=== PATIENT | male | born 1945 | race Caucasian/White ===

== ENCOUNTER 2022-11-06 10:50 | Inpatient (IN) ==
[2022-11-06] MEDS ORDERED: SODIUM CHLORIDE 0.9% 1,000 ML IV STA ×2 (12:11→18:24)
[2022-11-06 12:26] LABS: Basophils % 0.1 % (0.0-0.8); Hematocrit 29.7 VOL% (42.0-52.0); Hemoglobin 9.8 GM/DL (14.0-18.0); Immature Granulocytes % 4.8 %; Immature Granulocytes Absolute 0.37 #; Lymphocytes # 0.8 10*3/uL (1.4-4.0); Mean Corpuscular Volume 102.8 FL (87-102); Monocytes % 65.3 % (1.7-12.7); Neutrophils % 18.8 % (38.7-73.9); Platelet Count 104 T/CUMM (130-400); Red Blood Count 2.89 MC/CUMM (3.8-5.5); Red Cell Distribution Width 18.9 % (9.3-17.3); White Blood Count 7.64 T/CUMM (4-12)
[2022-11-06 12:35] LABS: Alanine Aminotransferase 44 U/L (16-61); Albumin 2.7 G/DL (3.4-5.0); Alkaline Phosphatase 76 U/L (45-117); Aspartate Amino Transferase 51 U/L (0-37); Blood Urea Nitrogen 43 MG/DL (7-18); Calcium 8.9 MG/DL (8.5-10.1); Carbon Dioxide 15 MMOL/L (21-32); Chloride 99 MMOL/L (98-107); Glucose 182 MG/DL (74-106); Osmolality,Calculated 279.5 MOS/KG (273-304); Potassium 4.5 MMOL/L (3.5-5.1); Sodium 132 MMOL/L (136-145); Total Protein 7.5 G/DL (6.4-8.2)
[2022-11-06 12:46] LABS: INR 1.1; PT Patient Result 12.1 SECS (10.1-12.1)
[2022-11-06 13:09] LABS: Band Neutrophils 4 % (0-10); Lymphocytes 12 % (20-55); Platelet Estimate Decreased; Total Cells Counted 100
[2022-11-06 13:10] LABS: Anisocytosis 1+; Macrocytosis 1+
[2022-11-06] MEDS: ENOXAPARIN 80 MG/0.8 ML SYRINGE SUBCUT SCH (13:22)
[2022-11-06] MEDS ORDERED: ALBUTEROL 2.5 MG/3 ML NEB RESP TX PRN (14:27)
[2022-11-06] MEDS ORDERED: ONDANSETRON 4 MG/2 ML VIAL IV PRN (14:29)
[2022-11-06] MEDS: PANTOPRAZOLE 40 MG VIAL IV SCH (14:55)
[2022-11-06] MEDS ORDERED: SODIUM CHLORIDE 0.9% 1,000 ML IV ONE (15:22)
[2022-11-06] MEDS ORDERED: ALBUTEROL/IPRATROPIUM 3 ML NEB RESP TX STA (15:23)
[2022-11-06 15:37] LABS: Hyaline Casts,Urine 12 /LPF (0-3); Mucus,Urine Occasional /LPF (Occasional); RBC,Urine 12 /HPF (0-4); Squamous Epithelial Cell,Urine Occasional /HPF (0-10)
[2022-11-06 15:38] LABS: Bilirubin,Urine Negative (Negative); Blood, Urine Moderate mg/dL (Negative); Glucose,Urine (UA) 100 mg/dL (Negative); Ketones,Urine Negative (Negative); Nitrite,Urine Negative (Negative); Protein,Urine 100 mg/dL (Negative); Urine Appearance Clear (Clear); Urine Color Yellow (Yellow); Urine Specific Gravity 1.025 (1.001-1.035); Urine Urobilinogen 0.2 eU/dL (<2.0); Urine pH 5.5 (4.5-8.0)
[2022-11-06] MEDS ORDERED: NOREPINEPHRINE 4 MG/4 ML VIAL IV ONE (17:16)
[2022-11-06 17:17] LABS: Arterial Base Excess iSTAT -11 MMOL/L (-2.5-2.5); Arterial Bicarbonate iSTAT 13.1 MMOL/L (20-26); Arterial O2 Saturation iSTAT 97 % (95-100); Arterial PCO2 iSTAT 22 MM HG (35-48); Arterial PO2 iSTAT 87 MM HG (80-95); Arterial Total CO2 iSTAT 14 MMO/L (23-27)
[2022-11-06] MEDS: NOREPINEPHRINE DRIP 8 MG/250 ML PREMIX IV PRN (17:22)
[2022-11-06] MEDS: LACTATED RINGERS 1,000 ML IV SCH (17:28)
[2022-11-06] MEDS ORDERED: LACTATED RINGERS 1,000 ML IV SCH (17:30)
[2022-11-06] MEDS ORDERED: FUROSEMIDE 40 MG/4 ML VIAL IV ONE (23:53)
[2022-11-06 23:58] LABS: ABG Base Excess -12.9 MMOL/L (-2.5-2.5); ABG HCO3 14.4 MMOL/L (20-26); ABG PCO2 23.6 MM HG (35-48); ABG PH 7.315 (7.35-7.45); ABG PO2 84.6 MM HG (80-95)
[2022-11-07] MEDS ORDERED: CEFEPIME 2,000 MG in SODIUM CHLORIDE 0.9% 100 ML IV SCH (01:00)
[2022-11-07] MEDS: metroNIDAZOLE INJ 500 MG/100 ML PREMIX IV SCH ×3 (01:18→16:40)
[2022-11-07] MEDS: CEFEPIME 1,000 MG in SODIUM CHLORIDE 0.9% 100 ML IV SCH ×2 (01:41→14:30)
[2022-11-07 01:59] LABS: Albumin 2.4 G/DL (3.4-5.0); Bilirubin,Total 0.9 MG/DL (0.20-1.00); Calcium 8.6 MG/DL (8.5-10.1); Osmolality,Calculated 276.5 MOS/KG (273-304); Potassium 4.5 MMOL/L (3.5-5.1)
[2022-11-07] MEDS: LACTATED RINGERS 1,000 ML IV SCH (04:17)
[2022-11-07 05:13] LABS: Basophils % 0.2 % (0.0-0.8); Hematocrit 30.6 VOL% (42.0-52.0); Hemoglobin 9.8 GM/DL (14.0-18.0); Immature Granulocytes % 7.7 %; Immature Granulocytes Absolute 1.32 #; Lymphocytes # 2.9 10*3/uL (1.4-4.0); Lymphocytes % 16.9 % (21.2-54.2); Mean Corpuscular Volume 105.2 FL (87-102); Mean Platelet Volume 9.2 FL (9.6-12.0); Monocytes % 52.8 % (1.7-12.7); Neutrophils % 22.4 % (38.7-73.9); Platelet Count 130 T/CUMM (130-400); Red Blood Count 2.91 MC/CUMM (3.8-5.5); Red Cell Distribution Width 19.7 % (9.3-17.3); White Blood Count 17.13 T/CUMM (4-12)
[2022-11-07 05:41] LABS: Band Neutrophils 3 % (0-10); Lymphocytes 12 % (20-55); Metamyelocytes 1 %; Total Cells Counted 100
[2022-11-07 05:42] LABS: Macrocytosis 1+; Platelet Estimate Adequate; Polychromasia Slight
[2022-11-07 05:43] LABS: Albumin 2.4 G/DL (3.4-5.0); Bilirubin,Total 0.8 MG/DL (0.20-1.00); Osmolality,Calculated 282.2 MOS/KG (273-304); Potassium 4.5 MMOL/L (3.5-5.1); Risk Ratio 2.69; Thyroid Stimulating Hormone 8.95 uIU/ml (0.358-3.74); Total Protein 7.3 G/DL (6.4-8.2); VLDL Cholesterol 17.4 MG/DL
[2022-11-07 06:07] LABS: ABG Base Excess -15.3 MMOL/L (-2.5-2.5); ABG HCO3 12.9 MMOL/L (20-26); ABG Oxygen Saturation 95.6 % (95-100); ABG PCO2 25.4 MM HG (35-48); ABG PH 7.242 (7.35-7.45); ABG PO2 94.3 MM HG (80-95)
[2022-11-07] MEDS ORDERED: MICAFUNGIN 100 MG in SODIUM CHLORIDE 0.9% 100 ML IV SCH (09:00)
[2022-11-07] MEDS: HYDROCORTISONE 100 MG VIAL IV SCH ×3 (09:17→20:19)
[2022-11-07] MEDS: NOREPINEPHRINE DRIP 8 MG/250 ML PREMIX IV PRN (10:35)
[2022-11-07] MEDS: SODIUM BICARB INJ 150 MEQ in DEXTROSE 5% 1,000 ML IV SCH (11:40)
[2022-11-07] MEDS: ENOXAPARIN 80 MG/0.8 ML SYRINGE SUBCUT SCH (14:30)
[2022-11-07] MEDS: VANCOMYCIN 125 MG CAPSULE PO SCH ×2 (14:32→20:19)
[2022-11-07] MEDS: PANTOPRAZOLE 40 MG VIAL IV SCH (14:32)
[2022-11-07] MEDS ORDERED: SODIUM BICARBONATE 50 MEQ/50 ML VIAL IV ONE (17:48)
[2022-11-08] MEDS: INSULIN LISPRO 100 UNIT/ML SUBCUT SCH ×4 (00:20→18:47)
[2022-11-08] MEDS: CEFEPIME 1,000 MG in SODIUM CHLORIDE 0.9% 100 ML IV SCH ×2 (00:27→12:57)
[2022-11-08] MEDS: metroNIDAZOLE INJ 500 MG/100 ML PREMIX IV SCH ×3 (00:29→20:40)
[2022-11-08 01:50] LABS: Basophils % 0.2 % (0.0-0.8); Hemoglobin 8.2 GM/DL (14.0-18.0); Immature Granulocytes % 4.3 %; Immature Granulocytes Absolute 0.35 #; Lymphocytes % 11.9 % (21.2-54.2); Mean Corpuscular HGB Conc 32.8 GM/DL (32-36); Mean Corpuscular Volume 102.5 FL (87-102); Mean Platelet Volume 9.8 FL (9.6-12.0); Monocytes # 5.4 10*3/uL (0.11-0.8); Monocytes % 66.2 % (1.7-12.7); Neutrophils % 17.4 % (38.7-73.9); Platelet Count 99 T/CUMM (130-400); Red Blood Count 2.44 MC/CUMM (3.8-5.5); Red Cell Distribution Width 19.8 % (9.3-17.3); White Blood Count 8.17 T/CUMM (4-12)
[2022-11-08 01:59] LABS: Bilirubin,Total 0.6 MG/DL (0.20-1.00); Calcium 8.3 MG/DL (8.5-10.1); Osmolality,Calculated 298.2 MOS/KG (273-304); Potassium 4.2 MMOL/L (3.5-5.1); Total Protein 6.5 G/DL (6.4-8.2)
[2022-11-08] MEDS: HYDROCORTISONE 100 MG VIAL IV SCH ×3 (02:20→20:37)
[2022-11-08 02:55] LABS: Lymphocytes 10 % (20-55); Total Cells Counted 100
[2022-11-08 02:56] LABS: Platelet Estimate Decreased
[2022-11-08 02:57] LABS: Anisocytosis 1+; Macrocytosis 1+; Ovalocytes Few
[2022-11-08] MEDS: VANCOMYCIN 125 MG CAPSULE PO SCH ×4 (03:01→18:23)
[2022-11-08] MEDS: SODIUM BICARB INJ 150 MEQ in DEXTROSE 5% 1,000 ML IV SCH ×2 (03:06→16:02)
[2022-11-08 03:59] LABS: ABG Base Excess -8.1 MMOL/L (-2.5-2.5); ABG HCO3 17.9 MMOL/L (20-26); ABG Oxygen Saturation 97.7 % (95-100); ABG PCO2 27.3 MM HG (35-48); ABG PH 7.374 (7.35-7.45); ABG TCO2 14.4 MMOL/L (23-27)
[2022-11-08] MEDS ORDERED: ACETAMINOPHEN 325 MG TABLET PO PRN (11:03)
[2022-11-08] MEDS ORDERED: SODIUM CHLORIDE 0.9% 1,000 ML IV PRN (11:34)
[2022-11-08] MEDS: SODIUM BICARBONATE 650 MG TABLET PO SCH ×2 (11:47→20:37)
[2022-11-08] MEDS: METOPROLOL TARTRATE 5 MG/5 ML VIAL IV PRN ×2 (12:53→19:03)
[2022-11-08] MEDS ORDERED: SODIUM BICARB IV SCH (13:00)
[2022-11-08] MEDS ORDERED: DEXTROSE 5% IV SCH (13:00)
[2022-11-08 15:00] LABS: Calcium 8.1 MG/DL (8.5-10.1); Osmolality,Calculated 307.1 MOS/KG (273-304); Potassium 3.7 MMOL/L (3.5-5.1)
[2022-11-08] MEDS: PANTOPRAZOLE 40 MG VIAL IV SCH (15:26)
[2022-11-08] MEDS ORDERED: METOPROLOL TARTRATE 5 MG/5 ML VIAL IV ONE (16:45)
[2022-11-08] MEDS ORDERED: GLUCAGON 1 MG VIAL IM PRN (17:38)
[2022-11-08] MEDS ORDERED: DEXTROSE 10% 250 ML BAG IV PRN (17:40)
[2022-11-08] MEDS: GABAPENTIN 300 MG CAPSULE PO SCH (20:37)
[2022-11-08] MEDS ORDERED: AMIODARONE INJ 150 MG in DEXTROSE 5% 100 ML IV ONE (21:18)
[2022-11-08] MEDS ORDERED: AMIODARONE 150 MG/3 ML VIAL ONE (21:25)
[2022-11-08] MEDS ORDERED: AMIODARONE INJ 450 MG in DEXTROSE 5% 241 ML IV SCH (22:00)
[2022-11-08] MEDS ORDERED: SODIUM BICARB INJ 150 MEQ in STERILE WATER INJ 850 ML IV SCH (22:00)
[2022-11-09] MEDS: INSULIN LISPRO 100 UNIT/ML SUBCUT SCH ×5 (00:04→20:47)
[2022-11-09] MEDS: CEFEPIME 1,000 MG in SODIUM CHLORIDE 0.9% 100 ML IV SCH ×2 (00:05→13:12)
[2022-11-09] MEDS: VANCOMYCIN 125 MG CAPSULE PO SCH ×4 (00:06→18:11)
[2022-11-09 02:45] LABS: Basophils % 0.3 % (0.0-0.8); Hematocrit 26.1 VOL% (42.0-52.0); Hemoglobin 8.9 GM/DL (14.0-18.0); Immature Granulocytes % 2.3 %; Immature Granulocytes Absolute 0.08 #; Lymphocytes # 0.6 10*3/uL (1.4-4.0); Lymphocytes % 16.2 % (21.2-54.2); Mean Corpuscular HGB Conc 34.1 GM/DL (32-36); Mean Corpuscular Volume 97.4 FL (87-102); Mean Platelet Volume 9.6 FL (9.6-12.0); Monocytes % 56.3 % (1.7-12.7); Neutrophils % 24.9 % (38.7-73.9); Platelet Count 84 T/CUMM (130-400); Red Blood Count 2.68 MC/CUMM (3.8-5.5); Red Cell Distribution Width 18.6 % (9.3-17.3); White Blood Count 3.52 T/CUMM (4-12)
[2022-11-09 03:00] LABS: Calcium 7.7 MG/DL (8.5-10.1); Free T4 (Free Thyroxine) 0.96 NG/DL (0.76-1.46); Potassium 3.7 MMOL/L (3.5-5.1)
[2022-11-09 03:07] LABS: Lymphocytes 14 % (20-55); Platelet Estimate Decreased; Total Cells Counted 100
[2022-11-09] MEDS: HYDROCORTISONE 100 MG VIAL IV SCH ×2 (04:52→17:44)
[2022-11-09] MEDS: metroNIDAZOLE INJ 500 MG/100 ML PREMIX IV SCH ×3 (04:52→20:46)
[2022-11-09] MEDS: LEVOTHYROXINE 50 MCG TABLET PO SCH (05:52)
[2022-11-09] MEDS: AMIODARONE INJ 450 MG in DEXTROSE 5% 241 ML IV SCH ×2 (06:01→21:07)
[2022-11-09] MEDS ORDERED: FUROSEMIDE 40 MG/4 ML VIAL IV ONE ×2 (08:14→16:00)
[2022-11-09] MEDS ORDERED: ENOXAPARIN 30 MG/0.3 ML SYRINGE SUBCUT SCH (09:00)
[2022-11-09] MEDS: ENOXAPARIN 100 MG/ML SYRINGE SUBCUT SCH ×2 (09:37→20:47)
[2022-11-09] MEDS: GABAPENTIN 300 MG CAPSULE PO SCH ×2 (09:37→20:47)
[2022-11-09] MEDS: INSULIN GLARGINE 100 UNIT/ML SUBCUT SCH (09:37)
[2022-11-09] MEDS: SODIUM BICARBONATE 650 MG TABLET PO SCH ×2 (09:38→20:47)
[2022-11-09] MEDS: METOPROLOL TARTRATE 25 MG TABLET PO SCH (09:42)
[2022-11-09] MEDS ORDERED: POTASSIUM CHLORIDE 20 MEQ TABLET PO ONE (11:58)
[2022-11-09] MEDS: ASCORBIC ACID 500 MG TABLET PO SCH ×2 (12:13→20:48)
[2022-11-09] MEDS: AMIODARONE 200 MG TABLET PO SCH ×2 (12:13→20:48)
[2022-11-09] MEDS ORDERED: LEVALBUTEROL 1.25 MG/3 ML NEB RESP TX PRN (13:22)
[2022-11-09] MEDS ORDERED: LEVALBUTEROL 1.25 MG/3 ML NEB RESP TX ONE (13:24)
[2022-11-09] MEDS ORDERED: ALBUMIN 25% 25 GM/100 ML VIAL IV ONE (15:25)
[2022-11-09] MEDS: PANTOPRAZOLE 40 MG VIAL IV SCH (15:34)
[2022-11-09] MEDS ORDERED: ZALEPLON 5 MG CAPSULE PO PRN (18:31)
[2022-11-10] MEDS: CEFEPIME 1,000 MG in SODIUM CHLORIDE 0.9% 100 ML IV SCH ×2 (00:13→12:00)
[2022-11-10] MEDS: VANCOMYCIN 125 MG CAPSULE PO SCH ×5 (00:14→23:48)
[2022-11-10 04:29] LABS: Basophils % 0.4 % (0.0-0.8); Hematocrit 25.2 VOL% (42.0-52.0); Hemoglobin 8.4 GM/DL (14.0-18.0); Immature Granulocytes % 1.3 %; Immature Granulocytes Absolute 0.03 #; Lymphocytes # 0.5 10*3/uL (1.4-4.0); Lymphocytes % 21.7 % (21.2-54.2); Mean Corpuscular HGB Conc 33.3 GM/DL (32-36); Mean Corpuscular Volume 101.6 FL (87-102); Mean Platelet Volume 9.2 FL (9.6-12.0); Monocytes # 1.1 10*3/uL (0.11-0.8); Monocytes % 49.1 % (1.7-12.7); Neutrophils % 27.5 % (38.7-73.9); Platelet Count 72 T/CUMM (130-400); Red Blood Count 2.48 MC/CUMM (3.8-5.5); Red Cell Distribution Width 18.7 % (9.3-17.3); White Blood Count 2.26 T/CUMM (4-12)
[2022-11-10 04:46] LABS: Albumin 2.1 G/DL (3.4-5.0); Bilirubin,Total 0.8 MG/DL (0.20-1.00); Calcium 7.6 MG/DL (8.5-10.1); Potassium 3.7 MMOL/L (3.5-5.1); Total Protein 6.1 G/DL (6.4-8.2)
[2022-11-10 04:55] LABS: Hypochromia Slight; Lymphocytes 31 % (20-55); Microcytosis Slight; Platelet Estimate Decreased; Total Cells Counted 100
[2022-11-10 05:02] LABS: Calcium 7.6 MG/DL (8.5-10.1); Osmolality,Calculated 305.1 MOS/KG (273-304); Potassium 3.7 MMOL/L (3.5-5.1)
[2022-11-10 05:04] LABS: Folate 5.14 NG/ML (5.38-24.0)
[2022-11-10] MEDS: HYDROCORTISONE 100 MG VIAL IV SCH ×2 (05:31→16:30)
[2022-11-10] MEDS: LEVOTHYROXINE 50 MCG TABLET PO SCH (05:31)
[2022-11-10] MEDS: metroNIDAZOLE INJ 500 MG/100 ML PREMIX IV SCH ×3 (05:33→20:43)
[2022-11-10] MEDS ORDERED: FUROSEMIDE 40 MG/4 ML VIAL IV ONE (08:14)
[2022-11-10] MEDS: INSULIN GLARGINE 100 UNIT/ML SUBCUT SCH (08:33)
[2022-11-10] MEDS: INSULIN LISPRO 100 UNIT/ML SUBCUT SCH ×4 (08:33→22:43)
[2022-11-10] MEDS: METOPROLOL TARTRATE 25 MG TABLET PO SCH (08:34)
[2022-11-10] MEDS: ASCORBIC ACID 500 MG TABLET PO SCH ×2 (08:34→20:45)
[2022-11-10] MEDS: AMIODARONE 200 MG TABLET PO SCH ×2 (08:34→20:45)
[2022-11-10] MEDS: ENOXAPARIN 100 MG/ML SYRINGE SUBCUT SCH ×2 (08:34→20:44)
[2022-11-10] MEDS: SODIUM BICARBONATE 650 MG TABLET PO SCH ×2 (08:34→20:44)
[2022-11-10] MEDS: GABAPENTIN 300 MG CAPSULE PO SCH ×2 (08:35→20:46)
[2022-11-10] MEDS: guaiFENesin/DM ER 600-30 MG TABLET PO SCH ×2 (08:43→20:45)
[2022-11-10] MEDS ORDERED: HYDROCORTISONE 100 MG VIAL IV SCH (09:02)
[2022-11-10] MEDS ORDERED: POTASSIUM CHLORIDE 20 MEQ TABLET PO ONE (14:44)
[2022-11-10] MEDS: FOLIC ACID 1 MG TABLET PO SCH (20:45)
[2022-11-11 04:20] LABS: Hematocrit 25.2 VOL% (42.0-52.0); Hemoglobin 8.3 GM/DL (14.0-18.0); Immature Granulocytes % 1.2 %; Immature Granulocytes Absolute 0.02 #; Lymphocytes # 0.6 10*3/uL (1.4-4.0); Lymphocytes % 33.7 % (21.2-54.2); Mean Corpuscular HGB Conc 32.9 GM/DL (32-36); Mean Corpuscular Volume 102.9 FL (87-102); Mean Platelet Volume 10.9 FL (9.6-12.0); Monocytes # 0.7 10*3/uL (0.11-0.8); Monocytes % 43.4 % (1.7-12.7); Neutrophils % 21.7 % (38.7-73.9); Red Blood Count 2.45 MC/CUMM (3.8-5.5); Red Cell Distribution Width 18.6 % (9.3-17.3); White Blood Count 1.66 T/CUMM (4-12)
[2022-11-11 04:21] LABS: Platelet Count 71 T/CUMM (130-400)
[2022-11-11 04:43] LABS: Calcium 7.6 MG/DL (8.5-10.1); Osmolality,Calculated 309.8 MOS/KG (273-304); Potassium 3.5 MMOL/L (3.5-5.1)
[2022-11-11 04:45] LABS: Hypochromia Slight; Lymphocytes 34 % (20-55); Platelet Estimate Decreased; Total Cells Counted 100
[2022-11-11] MEDS: HYDROCORTISONE 100 MG VIAL IV SCH ×2 (05:00→17:51)
[2022-11-11] MEDS: metroNIDAZOLE INJ 500 MG/100 ML PREMIX IV SCH ×3 (05:00→21:15)
[2022-11-11] MEDS: VANCOMYCIN 125 MG CAPSULE PO SCH ×3 (05:24→17:50)
[2022-11-11] MEDS: LEVOTHYROXINE 50 MCG TABLET PO SCH (05:40)
[2022-11-11] MEDS: INSULIN LISPRO 100 UNIT/ML SUBCUT SCH ×4 (08:02→21:14)
[2022-11-11] MEDS: SODIUM BICARBONATE 650 MG TABLET PO SCH (08:36)
[2022-11-11] MEDS: guaiFENesin/DM ER 600-30 MG TABLET PO SCH ×2 (08:37→20:38)
[2022-11-11] MEDS: FOLIC ACID 1 MG TABLET PO SCH ×2 (08:37→21:12)
[2022-11-11] MEDS: AMIODARONE 200 MG TABLET PO SCH ×2 (08:37→21:12)
[2022-11-11] MEDS: ASCORBIC ACID 500 MG TABLET PO SCH ×2 (08:37→21:12)
[2022-11-11] MEDS: GABAPENTIN 300 MG CAPSULE PO SCH ×2 (08:37→20:38)
[2022-11-11] MEDS: METOPROLOL TARTRATE 25 MG TABLET PO SCH (08:37)
[2022-11-11] MEDS: INSULIN GLARGINE 100 UNIT/ML SUBCUT SCH (08:38)
[2022-11-11] MEDS: ENOXAPARIN 100 MG/ML SYRINGE SUBCUT SCH (11:14)
[2022-11-11] MEDS ORDERED: diphenhydrAMINE CAP 25 MG CAPSULE PO PRN (12:30)
[2022-11-11] MEDS ORDERED: FUROSEMIDE 40 MG/4 ML VIAL IV ONE (12:42)
[2022-11-11] MEDS: MELATONIN 3 MG TABLET PO PRN (20:38)
[2022-11-12] MEDS: VANCOMYCIN 125 MG CAPSULE PO SCH ×5 (01:38→23:35)
[2022-11-12 05:22] LABS: Eosinophils % 0.6 % (0.00-10.9); Immature Granulocytes % 3.9 %; Immature Granulocytes Absolute 0.06 #; Lymphocytes # 0.6 10*3/uL (1.4-4.0); Lymphocytes % 41.6 % (21.2-54.2); Mean Corpuscular HGB Conc 32.2 GM/DL (32-36); Mean Corpuscular Volume 105.6 FL (87-102); Mean Platelet Volume 10.6 FL (9.6-12.0); Monocytes # 0.5 10*3/uL (0.11-0.8); Monocytes % 32.5 % (1.7-12.7); Neutrophils % 21.4 % (38.7-73.9); Platelet Count 88 T/CUMM (130-400); Red Blood Count 1.62 MC/CUMM (3.8-5.5); Red Cell Distribution Width 18.7 % (9.3-17.3); White Blood Count 1.54 T/CUMM (4-12)
[2022-11-12 05:25] LABS: Hematocrit 17.1 VOL% (42.0-52.0); Hemoglobin 5.5 GM/DL (14.0-18.0)
[2022-11-12 05:37] LABS: Calcium 7.7 MG/DL (8.5-10.1); Osmolality,Calculated 312.8 MOS/KG (273-304); Potassium 3.3 MMOL/L (3.5-5.1)
[2022-11-12 05:50] LABS: Lymphocytes 40 % (20-55); Total Cells Counted 100
[2022-11-12 05:51] LABS: Anisocytosis Slight; Macrocytosis 1+; Platelet Estimate Decreased
[2022-11-12] MEDS: metroNIDAZOLE INJ 500 MG/100 ML PREMIX IV SCH ×3 (06:01→21:48)
[2022-11-12] MEDS: HYDROCORTISONE 100 MG VIAL IV SCH ×2 (06:02→17:07)
[2022-11-12] MEDS: LEVOTHYROXINE 50 MCG TABLET PO SCH (06:02)
[2022-11-12] MEDS ORDERED: POTASSIUM CHLORIDE 20 MEQ TABLET PO ONE (07:15)
[2022-11-12] MEDS ORDERED: SODIUM CHLORIDE 0.9% 1,000 ML IV PRN (07:15)
[2022-11-12] MEDS ORDERED: FUROSEMIDE 40 MG/4 ML VIAL IV PRN (07:16)
[2022-11-12] MEDS: INSULIN LISPRO 100 UNIT/ML SUBCUT SCH ×4 (07:29→21:48)
[2022-11-12] MEDS: FOLIC ACID 1 MG TABLET PO SCH ×2 (08:05→21:47)
[2022-11-12] MEDS: AMIODARONE 200 MG TABLET PO SCH ×2 (08:05→21:45)
[2022-11-12] MEDS: guaiFENesin/DM ER 600-30 MG TABLET PO SCH ×2 (08:06→21:45)
[2022-11-12] MEDS: ASCORBIC ACID 500 MG TABLET PO SCH ×2 (08:06→21:46)
[2022-11-12] MEDS: METOPROLOL TARTRATE 25 MG TABLET PO SCH (08:06)
[2022-11-12] MEDS: GABAPENTIN 300 MG CAPSULE PO SCH ×2 (08:06→21:47)
[2022-11-12] MEDS: INSULIN GLARGINE 100 UNIT/ML SUBCUT SCH (08:47)
[2022-11-12] MEDS ORDERED: ASPIRIN EC 81 MG TABLET PO SCH (09:00)
[2022-11-12] MEDS ORDERED: FUROSEMIDE 40 MG/4 ML VIAL IV ONE (14:00)
[2022-11-12 23:51] LABS: Hematocrit 32.6 VOL% (42.0-52.0); Hemoglobin 10.8 GM/DL (14.0-18.0)
[2022-11-13] MEDS: metroNIDAZOLE INJ 500 MG/100 ML PREMIX IV SCH ×3 (05:18→21:29)
[2022-11-13] MEDS: HYDROCORTISONE 100 MG VIAL IV SCH ×2 (05:19→05:31)
[2022-11-13] MEDS: VANCOMYCIN 125 MG CAPSULE PO SCH ×4 (05:25→23:18)
[2022-11-13] MEDS: LEVOTHYROXINE 50 MCG TABLET PO SCH (05:31)
[2022-11-13 05:40] LABS: Eosinophils % 0.6 % (0.00-10.9); Hematocrit 32.1 VOL% (42.0-52.0); Hemoglobin 10.6 GM/DL (14.0-18.0); Immature Granulocytes % 1.8 %; Immature Granulocytes Absolute 0.03 #; Lymphocytes # 0.5 10*3/uL (1.4-4.0); Lymphocytes % 28.1 % (21.2-54.2); Mean Corpuscular Volume 99.7 FL (87-102); Mean Platelet Volume 10.1 FL (9.6-12.0); Monocytes # 0.9 10*3/uL (0.11-0.8); Monocytes % 50.9 % (1.7-12.7); Neutrophils % 18.6 % (38.7-73.9); Platelet Count 73 T/CUMM (130-400); Red Blood Count 3.22 MC/CUMM (3.8-5.5); Red Cell Distribution Width 20.1 % (9.3-17.3); White Blood Count 1.71 T/CUMM (4-12)
[2022-11-13 05:50] LABS: INR 1.3; PT Patient Result 13.9 SECS (10.1-12.1); Partial Thromboplastin Time 35.5 SECS (23.7-32.9)
[2022-11-13 05:56] LABS: Calcium 7.6 MG/DL (8.5-10.1); Osmolality,Calculated 314.7 MOS/KG (273-304)
[2022-11-13 06:00] LABS: % Iron Saturation 53.1 % (18-50); Ferritin 679.5 ng/mL (26-388)
[2022-11-13 06:03] LABS: Folate 15.58 NG/ML (5.38-24.0); Vitamin B12 1365 PG/ML (211-911)
[2022-11-13 06:09] LABS: Eosinophils 1 % (0-10); Lymphocytes 24 % (20-55); Total Cells Counted 100
[2022-11-13 06:10] LABS: Hypochromia Slight
[2022-11-13 06:11] LABS: Anisocytosis 1+; Ovalocytes Slight; Platelet Estimate Decreased
[2022-11-13] MEDS: INSULIN LISPRO 100 UNIT/ML SUBCUT SCH ×4 (08:34→22:02)
[2022-11-13] MEDS: FUROSEMIDE 40 MG/4 ML VIAL IV SCH (08:34)
[2022-11-13] MEDS: GABAPENTIN 300 MG CAPSULE PO SCH ×2 (08:34→21:26)
[2022-11-13] MEDS: ASCORBIC ACID 500 MG TABLET PO SCH ×2 (09:59→21:27)
[2022-11-13] MEDS: INSULIN GLARGINE 100 UNIT/ML SUBCUT SCH (10:00)
[2022-11-13] MEDS: FOLIC ACID 1 MG TABLET PO SCH ×2 (10:01→21:28)
[2022-11-13] MEDS: AMIODARONE 200 MG TABLET PO SCH ×2 (10:01→21:28)
[2022-11-13] MEDS: guaiFENesin/DM ER 600-30 MG TABLET PO SCH ×2 (10:02→21:26)
[2022-11-13] MEDS: METOPROLOL TARTRATE 25 MG TABLET PO SCH (10:02)
[2022-11-13 12:34] LABS: Sedimentation Rate-Westergren 110 MM/HR (0-20)
[2022-11-13] MEDS: POLYETHYLENE GLYCOL POWDER 17 GM PACK PO SCH (21:28)
[2022-11-14] MEDS: metroNIDAZOLE INJ 500 MG/100 ML PREMIX IV SCH (05:39)
[2022-11-14] MEDS: HYDROCORTISONE 100 MG VIAL IV SCH (05:40)
[2022-11-14] MEDS: VANCOMYCIN 125 MG CAPSULE PO SCH ×4 (05:40→23:22)
[2022-11-14] MEDS: LEVOTHYROXINE 50 MCG TABLET PO SCH (05:41)
[2022-11-14 06:11] LABS: Eosinophils % 0.4 % (0.00-10.9); Hemoglobin 10.9 GM/DL (14.0-18.0); Immature Granulocytes % 5.2 %; Immature Granulocytes Absolute 0.13 #; Lymphocytes # 0.6 10*3/uL (1.4-4.0); Mean Corpuscular Volume 100.9 FL (87-102); Mean Platelet Volume 10.7 FL (9.6-12.0); Monocytes # 1.1 10*3/uL (0.11-0.8); Monocytes % 45.2 % (1.7-12.7); Neutrophils % 24.2 % (38.7-73.9); Platelet Count 75 T/CUMM (130-400); Red Blood Count 3.27 MC/CUMM (3.8-5.5); Red Cell Distribution Width 19.7 % (9.3-17.3); White Blood Count 2.52 T/CUMM (4-12)
[2022-11-14 06:26] LABS: Calcium 7.5 MG/DL (8.5-10.1); Osmolality,Calculated 306.7 MOS/KG (273-304)
[2022-11-14 06:40] LABS: Lymphocytes 24 % (20-55); Total Cells Counted 100
[2022-11-14 06:42] LABS: Atypical Lymphocytes Few; Macrocytosis 1+; Platelet Estimate Decreased; Polychromasia Slight; Smudge Cells Few
[2022-11-14 06:43] LABS: Anisocytosis 1+; Ovalocytes 1+; Schistocytes Few
[2022-11-14] MEDS: ASCORBIC ACID 500 MG TABLET PO SCH ×2 (09:21→21:52)
[2022-11-14] MEDS: GABAPENTIN 300 MG CAPSULE PO SCH ×2 (09:21→21:53)
[2022-11-14] MEDS: guaiFENesin/DM ER 600-30 MG TABLET PO SCH ×2 (09:22→21:52)
[2022-11-14] MEDS: METOPROLOL TARTRATE 25 MG TABLET PO SCH (09:22)
[2022-11-14] MEDS: AMIODARONE 200 MG TABLET PO SCH ×2 (09:22→21:52)
[2022-11-14] MEDS: FOLIC ACID 1 MG TABLET PO SCH ×2 (09:22→21:53)
[2022-11-14] MEDS: INSULIN GLARGINE 100 UNIT/ML SUBCUT SCH (09:22)
[2022-11-14] MEDS: POLYETHYLENE GLYCOL POWDER 17 GM PACK PO SCH (09:23)
[2022-11-14] MEDS: INSULIN LISPRO 100 UNIT/ML SUBCUT SCH ×4 (09:23→21:53)
[2022-11-14] MEDS: FUROSEMIDE 40 MG/4 ML VIAL IV SCH (10:33)
[2022-11-14] MEDS ORDERED: SUCRALFATE 1 GM TABLET PO SCH (11:30)
[2022-11-14] MEDS: SUCRALFATE 1 GM/10 ML UDCUP PO SCH ×3 (12:03→21:53)
[2022-11-15 04:45] LABS: Eosinophils % 1.5 % (0.00-10.9); Hematocrit 29.7 VOL% (42.0-52.0); Hemoglobin 9.7 GM/DL (14.0-18.0); Immature Granulocytes % 1.5 %; Immature Granulocytes Absolute 0.04 #; Lymphocytes # 0.8 10*3/uL (1.4-4.0); Lymphocytes % 27.7 % (21.2-54.2); Mean Corpuscular HGB Conc 32.7 GM/DL (32-36); Mean Corpuscular Volume 101.4 FL (87-102); Mean Platelet Volume 10.7 FL (9.6-12.0); Monocytes # 1.2 10*3/uL (0.11-0.8); Neutrophils % 24.3 % (38.7-73.9); Platelet Count 72 T/CUMM (130-400); Red Blood Count 2.93 MC/CUMM (3.8-5.5); Red Cell Distribution Width 19.4 % (9.3-17.3); White Blood Count 2.71 T/CUMM (4-12)
[2022-11-15 05:04] LABS: Lymphocytes 30 % (20-55); Platelet Estimate Decreased; Total Cells Counted 100
[2022-11-15 05:05] LABS: Hypochromia Slight
[2022-11-15 05:06] LABS: Calcium 7.6 MG/DL (8.5-10.1); Macrocytosis Slight; Potassium 3.5 MMOL/L (3.5-5.1)
[2022-11-15] MEDS: HYDROCORTISONE 100 MG VIAL IV SCH (05:35)
[2022-11-15] MEDS: LEVOTHYROXINE 50 MCG TABLET PO SCH (05:35)
[2022-11-15] MEDS: VANCOMYCIN 125 MG CAPSULE PO SCH ×4 (05:35→23:58)
[2022-11-15] MEDS: FUROSEMIDE 40 MG/4 ML VIAL IV SCH (08:43)
[2022-11-15] MEDS: ASCORBIC ACID 500 MG TABLET PO SCH ×2 (09:15→20:23)
[2022-11-15] MEDS: FOLIC ACID 1 MG TABLET PO SCH ×2 (09:15→20:23)
[2022-11-15] MEDS: METOPROLOL TARTRATE 25 MG TABLET PO SCH (09:15)
[2022-11-15] MEDS: GABAPENTIN 300 MG CAPSULE PO SCH ×2 (09:15→20:23)
[2022-11-15] MEDS: guaiFENesin/DM ER 600-30 MG TABLET PO SCH ×2 (09:15→20:23)
[2022-11-15] MEDS: AMIODARONE 200 MG TABLET PO SCH ×2 (09:16→20:23)
[2022-11-15] MEDS: INSULIN GLARGINE 100 UNIT/ML SUBCUT SCH (09:16)
[2022-11-15] MEDS: SUCRALFATE 1 GM/10 ML UDCUP PO SCH ×4 (09:16→20:22)
[2022-11-15] MEDS: POLYETHYLENE GLYCOL POWDER 17 GM PACK PO SCH (09:17)
[2022-11-15] MEDS: INSULIN LISPRO 100 UNIT/ML SUBCUT SCH ×4 (09:24→20:22)
[2022-11-15 09:57] LABS: Hemoglobin A1 (Alkaline) 97.5 % (96.5-98.5); Hemoglobin A2 (Alkaline) 2.5 % (1.5-3.5)
[2022-11-16] MEDS: METOPROLOL TARTRATE 5 MG/5 ML VIAL IV PRN (03:17)
[2022-11-16 04:59] LABS: Eosinophils % 0.8 % (0.00-10.9); Hematocrit 29.2 VOL% (42.0-52.0); Hemoglobin 9.8 GM/DL (14.0-18.0); Immature Granulocytes % 1.2 %; Immature Granulocytes Absolute 0.03 #; Lymphocytes # 0.7 10*3/uL (1.4-4.0); Lymphocytes % 26.5 % (21.2-54.2); Mean Corpuscular HGB Conc 33.6 GM/DL (32-36); Mean Corpuscular Volume 100.3 FL (87-102); Mean Platelet Volume 10.7 FL (9.6-12.0); Monocytes % 41.4 % (1.7-12.7); Neutrophils % 30.1 % (38.7-73.9); Platelet Count 70 T/CUMM (130-400); Red Blood Count 2.91 MC/CUMM (3.8-5.5); Red Cell Distribution Width 18.8 % (9.3-17.3); White Blood Count 2.49 T/CUMM (4-12)
[2022-11-16] MEDS ORDERED: DILTIAZEM 50 MG/10 ML VIAL IV ONE (05:15)
[2022-11-16 05:19] LABS: Calcium 7.6 MG/DL (8.5-10.1); Potassium 3.5 MMOL/L (3.5-5.1)
[2022-11-16 05:22] LABS: Hypochromia Slight; Lymphocytes 25 % (20-55); Platelet Estimate Decreased; Total Cells Counted 100
[2022-11-16 05:23] LABS: Macrocytosis Slight
[2022-11-16] MEDS ORDERED: DILTIAZEM INJ 100 MG in SODIUM CHLORIDE 0.9% 100 ML IV SCH (05:30)
[2022-11-16] MEDS: LEVOTHYROXINE 50 MCG TABLET PO SCH (05:36)
[2022-11-16] MEDS: VANCOMYCIN 125 MG CAPSULE PO SCH ×4 (05:36→23:55)
[2022-11-16] MEDS: HYDROCORTISONE 100 MG VIAL IV SCH (05:37)
[2022-11-16] MEDS ORDERED: POTASSIUM CHLORIDE 20 MEQ TABLET PO ONE (06:32)
[2022-11-16] MEDS: SUCRALFATE 1 GM/10 ML UDCUP PO SCH ×4 (06:39→21:48)
[2022-11-16] MEDS: GABAPENTIN 300 MG CAPSULE PO SCH ×2 (09:07→21:49)
[2022-11-16] MEDS: ASCORBIC ACID 500 MG TABLET PO SCH ×2 (09:07→21:49)
[2022-11-16] MEDS: guaiFENesin/DM ER 600-30 MG TABLET PO SCH ×2 (09:07→21:49)
[2022-11-16] MEDS: METOPROLOL TARTRATE 25 MG TABLET PO SCH (09:07)
[2022-11-16] MEDS: FOLIC ACID 1 MG TABLET PO SCH ×2 (09:08→21:49)
[2022-11-16] MEDS: AMIODARONE 200 MG TABLET PO SCH (09:08)
[2022-11-16] MEDS: POLYETHYLENE GLYCOL POWDER 17 GM PACK PO SCH (09:09)
[2022-11-16] MEDS: INSULIN LISPRO 100 UNIT/ML SUBCUT SCH ×4 (09:09→21:44)
[2022-11-16] MEDS: INSULIN GLARGINE 100 UNIT/ML SUBCUT SCH (09:12)
[2022-11-16] MEDS ORDERED: DIGOXIN 0.5 MG/2 ML AMP IV ONE (09:22)
[2022-11-16] MEDS ORDERED: AMIODARONE INJ 150 MG in DEXTROSE 5% 100 ML IV ONE (10:59)
[2022-11-16] MEDS ORDERED: AMIODARONE INJ 450 MG in DEXTROSE 5% 241 ML IV SCH ×2 (11:00→17:00)
[2022-11-16] MEDS: FUROSEMIDE 40 MG/4 ML VIAL IV SCH (12:39)
[2022-11-16] MEDS: MELATONIN 3 MG TABLET PO PRN (21:48)
[2022-11-17 04:42] LABS: Eosinophils % 1.2 % (0.00-10.9); Hematocrit 27.5 VOL% (42.0-52.0); Immature Granulocytes % 0.8 %; Immature Granulocytes Absolute 0.02 #; Lymphocytes # 0.7 10*3/uL (1.4-4.0); Lymphocytes % 27.8 % (21.2-54.2); Mean Corpuscular HGB Conc 32.7 GM/DL (32-36); Mean Corpuscular Volume 101.1 FL (87-102); Mean Platelet Volume 10.8 FL (9.6-12.0); Monocytes # 0.9 10*3/uL (0.11-0.8); Monocytes % 35.7 % (1.7-12.7); Neutrophils % 34.5 % (38.7-73.9); Platelet Count 78 T/CUMM (130-400); Red Blood Count 2.72 MC/CUMM (3.8-5.5); Red Cell Distribution Width 18.9 % (9.3-17.3); White Blood Count 2.41 T/CUMM (4-12)
[2022-11-17 05:05] LABS: Calcium 7.7 MG/DL (8.5-10.1); Osmolality,Calculated 294.1 MOS/KG (273-304); Potassium 3.8 MMOL/L (3.5-5.1)
[2022-11-17 05:09] LABS: Hypochromia Slight; Lymphocytes 30 % (20-55); Microcytosis Slight; Platelet Estimate Decreased; Total Cells Counted 100
[2022-11-17] MEDS: VANCOMYCIN 125 MG CAPSULE PO SCH (06:03)
[2022-11-17] MEDS: LEVOTHYROXINE 50 MCG TABLET PO SCH (06:03)
[2022-11-17] MEDS: HYDROCORTISONE 100 MG VIAL IV SCH (06:04)
[2022-11-17] MEDS ORDERED: AMIODARONE 200 MG TABLET PO SCH ×2 (07:00→09:00)
[2022-11-17] MEDS: INSULIN LISPRO 100 UNIT/ML SUBCUT SCH (08:22)
[2022-11-17 08:26] VITALS: BP 137/53
[2022-11-17] MEDS: SUCRALFATE 1 GM/10 ML UDCUP PO SCH (09:14)
[2022-11-17] MEDS: FUROSEMIDE 40 MG/4 ML VIAL IV SCH (09:15)
[2022-11-17] MEDS: INSULIN GLARGINE 100 UNIT/ML SUBCUT SCH (09:15)
[2022-11-17] MEDS: GABAPENTIN 300 MG CAPSULE PO SCH (09:15)
[2022-11-17] MEDS: guaiFENesin/DM ER 600-30 MG TABLET PO SCH (09:15)
[2022-11-17] MEDS: FOLIC ACID 1 MG TABLET PO SCH (09:16)
[2022-11-17] MEDS: METOPROLOL TARTRATE 25 MG TABLET PO SCH (09:16)
[2022-11-17] MEDS: POLYETHYLENE GLYCOL POWDER 17 GM PACK PO SCH (09:16)
[2022-11-17] MEDS: ASCORBIC ACID 500 MG TABLET PO SCH (09:16)
== END 2022-11-17 09:40 | DRG 871 ==
LOC: N.ED 10:50 → N.EDINP 14:27 → SUATTDRO 14:27 → N.CC 19:18 → N.TELEN 11-10 19:07
PROVIDERS: ADMIT Internal Medicine; ATTEND Family Medicine